=== PATIENT | male | born 1950 | race Hispanic/Latino ===

== ENCOUNTER 2021-03-10 17:07 | Observation (INO) | payer OTHER ==
[~2021-03-10] VITALS: Ht 160 cm; Wt 92.0 kg
[~2021-03-10 17:07] MED LIST: FENO160T16 PO; FOLI1TAB85 PO; GABA300S PO; GLIP10TA9 PO; IBUP-2077 PO; LOSA1TAB42 PO; MECL25TA3 PO; PARO-37 PO; PRAV40TA3 PO; REPA2TAB8 PO; SITA100T12 PO
[2021-03-10 17:53] LABS: BASOPHILS % (AUTO) 0.5 % (0.0-5.0); EOSINOPHILS % (AUTO) 0.6 % (0.0-8.0); HEMATOCRIT 41.1 % (42-54); LYMPHOCYTES % (AUTO) 11.7 % (21.0-51.0); MEAN CORPUSCULAR HEMOGLOBIN 30.8 pg (27.0-33.0); MEAN CORPUSCULAR HGB CONC 34.1 g/dL (32.0-36.0); MEAN CORPUSCULAR VOLUME 90.3 fL (79-99); MONOCYTES % (AUTO) 7.6 % (3.0-13.0); NEUTROPHILS % (AUTO) 79.1 % (40.0-77.0); PLATELET COUNT (AUTO) 206 K/uL (130-400); RED BLOOD CELL COUNT(AUTO) 4.55 MIL/uL (4.50-6.20); RED CELL DISTRIBUTION WIDTH 13.7 % (11.0-15.5); WHITE BLOOD COUNT (AUTO) 12.7 K/uL (4.8-10.8)
[2021-03-10 18:00] LABS: INR 1.04 (0.85-1.15); PROTHROMBIN TIME 11.3 SEC (9.6-11.6)
[2021-03-10] MEDS ORDERED: MORPHINE SULFATE 2 MG/ML 1ML SYG ONE ×2 (18:00→22:01)
[2021-03-10 18:01] LABS: PARTIAL THROMBOPLASTIN TIME 23.3 SEC (26.3-35.5)
[2021-03-10 18:06] LABS: CREATININE 1.9 mg/dL (0.5-1.5)
[2021-03-10 18:20] LABS: ALBUMIN 3.4 g/dL (3.5-5.0); TOTAL PROTEIN, SERUM 7.6 g/dL (6.0-8.3)
[2021-03-10 18:56] LABS: APPEARANCE,URINE Clear (CLEAR); BILIRUBIN,URINE Negative (NEGATIVE); COLOR,URINE Yellow (YELLOW); GLUCOSE, URINE (UA) >=1000 mg/dL (NEGATIVE); KETONES,URINE Negative (NEGATIVE); LEUKOCYTE ESTERASE ,URINE Negative (NEGATIVE); NITRATE,URINE Negative (NEGATIVE); OCCULT BLOOD,URINE Negative (NEGATIVE); PROTEIN,URINE Negative (NEGATIVE); UROBILINOGEN,URINE 0.2 mg/dL (0.2-1.0)
[2021-03-10 19:40] LABS: RBC,URINE 0-1 /HPF (0-1)
[2021-03-10 19:42] LABS: BACTERIA,URINE Few /HPF (None Seen); HYALINE CASTS, URINE 0-1 /LPF (0-1 /LPF); SQUAMOUS EPITHELIAL CELL,UR Rare /HPF (0-2)
[2021-03-10] MEDS ORDERED: HYDRALAZINE HCL 10 MG TABLET PO PRN (20:00)
[2021-03-10] MEDS ORDERED: DEXTROSE 50%-WATER 50 ML DISP.SYRIN IV PRN (20:00)
[2021-03-10] MEDS ORDERED: HYDROMORPHONE 1 MG/1 ML AMP IV PRN (20:00)
[2021-03-10] MEDS ORDERED: ACETAMINOPHEN 325 MG TAB PO PRN ×2 (20:00)
[2021-03-10] MEDS ORDERED: GUAIFENESIN-DM 200/20 MG 10 ML PO PRN (20:00)
[2021-03-10] MEDS ORDERED: ONDANSETRON HCL 4 MG/2 ML VIAL IV PRN (20:00)
[2021-03-10] MEDS ORDERED: BENZONATATE 100 MG CAPSULE PO PRN (20:00)
[2021-03-10] MEDS: SODIUM CHLORIDE 0.9% 1000ML 1,000 ML IV SCH (20:00)
[2021-03-10] MEDS ORDERED: NITROGLYCERIN 0.4 MG SL TAB SL PRN (20:00)
[2021-03-10] MEDS ORDERED: GLUCAGON 1MG KIT 1 MG ML IM PRN (20:00)
[2021-03-10] MEDS ORDERED: ZOLPIDEM TARTRATE 5 MG TAB PO PRN (20:00)
[2021-03-10] MEDS ORDERED: LACTULOSE 20 GM/30 ML UDCUP PO PRN (20:00)
[2021-03-10] MEDS ORDERED: MAG HYDROX/AL HYDROX/SIMETH ES 30 ML SUSP UDCUP PO PRN (20:00)
[2021-03-10] MEDS ORDERED: MORPHINE SULFATE 2 MG/ML 1ML SYG IV PRN (20:00)
[2021-03-10] MEDS: INSULIN HUMULIN R 100 UNIT/ML 3ML SQ SCH (21:00)
[2021-03-10] MEDS: GABAPENTIN 100 MG CAPSULE PO SCH (23:40)
[2021-03-10 23:55] VITALS: BP 154/90
[2021-03-11] MEDS: ACETAMINOPHEN-CODEINE 300/30MG TAB PO PRN ×3 (00:12→19:44)
[2021-03-11] MEDS ORDERED: GLIP10TA9 PO (01:11)
[2021-03-11] MEDS ORDERED: LISI1TAB51 PO (01:11)
[2021-03-11] MEDS ORDERED: INSLAN SQ (01:11)
[2021-03-11] MEDS ORDERED: DULO30CA52 PO (01:11)
[2021-03-11] MEDS ORDERED: GABA-529 PO (01:11)
[2021-03-11 03:50] VITALS: BP 118/70
[2021-03-11 06:10] LABS: BASOPHILS % (AUTO) 0.5 % (0.0-5.0); EOSINOPHILS % (AUTO) 2.5 % (0.0-8.0); HEMATOCRIT 38.2 % (42-54); LYMPHOCYTES % (AUTO) 17.3 % (21.0-51.0); MEAN CORPUSCULAR HEMOGLOBIN 31.3 pg (27.0-33.0); MEAN CORPUSCULAR HGB CONC 33.5 g/dL (32.0-36.0); MEAN CORPUSCULAR VOLUME 93.4 fL (79-99); MONOCYTES % (AUTO) 8.9 % (3.0-13.0); NEUTROPHILS % (AUTO) 70.3 % (40.0-77.0); PLATELET COUNT (AUTO) 193 K/uL (130-400); RED BLOOD CELL COUNT(AUTO) 4.09 MIL/uL (4.50-6.20); WHITE BLOOD COUNT (AUTO) 13.1 K/uL (4.8-10.8)
[2021-03-11 06:25] LABS: BILIRUBIN,DIRECT 0.2 mg/dL (0.0-0.3); BILIRUBIN,TOTAL 1.1 mg/dL (0.2-1.0); CREATININE 1.4 mg/dL (0.5-1.5); POTASSIUM 3.9 mmol/L (3.5-5.1); TOTAL PROTEIN, SERUM 6.5 g/dL (6.0-8.3)
[2021-03-11] MEDS: INSULIN HUMULIN R 100 UNIT/ML 3ML SQ SCH ×4 (07:30→20:52)
[2021-03-11 08:00] VITALS: BP 124/78
[2021-03-11] MEDS: FAMOTIDINE/PF 20 MG/2 ML VIAL IV SCH (08:16)
[2021-03-11] MEDS: GABAPENTIN 100 MG CAPSULE PO SCH ×2 (08:17→19:43)
[2021-03-11] MEDS: Vitamin B Complex/Vit C/Folic Acid PO SCH (08:17)
[2021-03-11] MEDS: LISINOPRIL 20 MG TABLET PO SCH (08:17)
[2021-03-11] MEDS: DULOXETINE HCL 30 MG CAP PO SCH (08:17)
[2021-03-11] MEDS ORDERED: HYDROCHLOROTHIAZIDE 25 MG TABLET PO SCH (09:00)
[2021-03-11] MEDS: SODIUM CHLORIDE 0.9% 1000ML 1,000 ML IV SCH ×2 (09:20→20:53)
[2021-03-11 11:53] VITALS: BP 115/78
[2021-03-11] MEDS: ACETAMINOPHEN EXTRA STRENGTH 500 MG TABLET PO SCH ×2 (15:51→19:45)
[2021-03-11 16:00] VITALS: BP 124/77
[2021-03-11 19:55] VITALS: BP 120/69
[2021-03-11] MEDS ORDERED: SIMVASTATIN 20 MG TABLET PO SCH (21:00)
[2021-03-11] MEDS ORDERED: NON-FORMULARY MEDICATION 1 EACH (Pravastatin Sodium 40 MG) PO SCH (21:00)
[2021-03-12] VITALS: BP 110/65
[2021-03-12] MEDS: ACETAMINOPHEN EXTRA STRENGTH 500 MG TABLET PO SCH ×2 (02:13→08:45)
[2021-03-12 04:00] VITALS: BP 114/67
[2021-03-12 04:20] LABS: HEMATOCRIT 36.6 % (42-54); MEAN CORPUSCULAR HEMOGLOBIN 30.7 pg (27.0-33.0); MEAN CORPUSCULAR HGB CONC 33.3 g/dL (32.0-36.0); MEAN CORPUSCULAR VOLUME 92.2 fL (79-99); RED BLOOD CELL COUNT(AUTO) 3.97 MIL/uL (4.50-6.20); RED CELL DISTRIBUTION WIDTH 13.5 % (11.0-15.5); WHITE BLOOD COUNT (AUTO) 10.8 K/uL (4.8-10.8)
[2021-03-12 04:25] LABS: HEMOGLOBIN A1C 7.6 % (4.0-6.0)
[2021-03-12 04:40] LABS: CREATININE 1.3 mg/dL (0.5-1.5); POTASSIUM 3.9 mmol/L (3.5-5.1)
[2021-03-12] MEDS: INSULIN HUMULIN R 100 UNIT/ML 3ML SQ SCH ×2 (05:19→12:15)
[2021-03-12 08:26] VITALS: BP 140/81
[2021-03-12] MEDS: DULOXETINE HCL 30 MG CAP PO SCH (08:55)
[2021-03-12] MEDS: Vitamin B Complex/Vit C/Folic Acid PO SCH (08:55)
[2021-03-12] MEDS: LISINOPRIL 20 MG TABLET PO SCH (08:55)
[2021-03-12] MEDS: ACETAMINOPHEN-CODEINE 300/30MG TAB PO PRN (08:56)
[2021-03-12] MEDS: GABAPENTIN 100 MG CAPSULE PO SCH (08:56)
[2021-03-12] MEDS: FAMOTIDINE/PF 20 MG/2 ML VIAL IV SCH (08:56)
[2021-03-12 11:48] VITALS: BP 117/73
[2021-03-12] MEDS: SODIUM CHLORIDE 0.9% 1000ML 1,000 ML IV SCH (12:11)
== END 2021-03-12 14:55 | disposition home or self-care (01) ==
LOC: EDH 17:07 → EDHIP 19:31 → 4BH 23:33
PROVIDERS: ADMIT Internal Medicine; ATTEND Internal Medicine
DX: S02.30XA Fracture of orbital floor, unspecified side, initial encounter for closed fracture (principal); T79.7XXA Traumatic subcutaneous emphysema, initial encounter; R42 Dizziness and giddiness; T14.8XXA Other injury of unspecified body region, initial encounter; E11.9 Type 2 diabetes mellitus without complications; I10 Essential (primary) hypertension; E78.5 Hyperlipidemia, unspecified; F32.9 Major depressive disorder, single episode, unspecified; E66.9 Obesity, unspecified; Z79.4 Long term (current) use of insulin; Z96.659 Presence of unspecified artificial knee joint; Z79.899 Other long term (current) drug therapy; Z68.35 Body mass index [BMI] 35.0-35.9, adult; W11.XXXA Fall on and from ladder, initial encounter; Y93.89 Activity, other specified; Y92.89 Other specified places as the place of occurrence of the external cause
CPT/HCPCS: 36415 ×3; 70450; 70486; 71045; 71250; 72125; 74176; 80048 ×2; 80053; 80076; 81001; 82550 ×3; 82948 ×7; 83036; 83605 ×2; 83690; 84484 ×2; 85025 ×2; 85027; 85610; 85730; 93005 ×2; 96361 ×2; 96372 ×2; 96374; 96375; 96376; 97039; 97161; 99285; G0378 ×42; G8978; G8979; G8980; G8981; G8982; G8983; J1815 ×3; J3490 ×2

== ENCOUNTER → 2022-03-13 | Outpatient (CLI) | payer OTHER ==
[~2022-03-13] MED LIST changes: +DULO30CA52 PO; -FENO160T16 PO; +GABA-529 PO; -GABA300S PO; +INSLAN SQ; +LISI1TAB51 PO; -LOSA1TAB42 PO; -PARO-37 PO; -SITA100T12 PO
== END | disposition home or self-care (01) ==
LOC: RAH 08:57
PROVIDERS: ATTEND Physical Medicine & Rehabilitation
DX: M47.22 Other spondylosis with radiculopathy, cervical region (principal); M48.02 Spinal stenosis, cervical region
CPT/HCPCS: 72141

== ENCOUNTER 2022-04-24 05:42 | Day surgery (SDC) | payer OTHER ==
[2022-04-23 10:07] LABS: BASOPHILS % (AUTO) 0.8 % (0.0-5.0); EOSINOPHILS % (AUTO) 4.4 % (0.0-8.0); LYMPHOCYTES % (AUTO) 21.5 % (21.0-51.0); MEAN CORPUSCULAR HEMOGLOBIN 31.6 pg (27.0-33.0); MONOCYTES % (AUTO) 5.8 % (3.0-13.0); NEUTROPHILS % (AUTO) 66.8 % (40.0-77.0); PLATELET COUNT (AUTO) 214 K/uL (130-400); RED BLOOD CELL COUNT(AUTO) 4.84 MIL/uL (4.50-6.20); RED CELL DISTRIBUTION WIDTH 13.2 % (11.0-15.5); WHITE BLOOD COUNT (AUTO) 8.4 K/uL (4.8-10.8)
[2022-04-23 10:15] VITALS: BP 158/79
[2022-04-23 10:15] LABS: CREATININE 1.3 mg/dL (0.5-1.5); POTASSIUM 4.5 mmol/L (3.5-5.1)
[2022-04-24] VITALS (12 sets, daily range): BP systolic 111–143; BP diastolic 69–83
[~2022-04-24] VITALS: Ht 165.1 cm; Wt 91.6 kg
[~2022-04-24 05:42] MED LIST changes: +CEFAZOLIN SODIUM 2 GM VIAL IV SCH; -FOLI1TAB85 PO; -IBUP-2077 PO; -MECL25TA3 PO
[2022-04-24] MEDS ORDERED: 0.9%NACL 1000ML 1,000 ML IV ONE (06:14)
[2022-04-24] MEDS ORDERED: CEFAZOLIN SODIUM 1 GM VIAL ONE (06:15)
[2022-04-24 06:48] LABS: INR 0.93 (0.85-1.15); PROTHROMBIN TIME 10.1 SEC (9.6-11.6)
[2022-04-24] MEDS ORDERED: MIDAZOLAM HCL 1 MG/ML 2ML VIAL ONE (06:57)
[2022-04-24] MEDS ORDERED: FENTANYL CITRATE PF 50 MCG/1 ML 2ML VIAL ONE (06:58)
[2022-04-24] MEDS ORDERED: LIDOCAINE HCL MDV 0.5% 50ML VIAL IJ ONE (07:02)
== END 2022-04-24 10:00 | disposition home or self-care (01) ==
LOC: DAH 05:42
PROVIDERS: ATTEND Neurological Surgery
DX: G56.03 Carpal tunnel syndrome, bilateral upper limbs (principal); I10 Essential (primary) hypertension; E11.9 Type 2 diabetes mellitus without complications; I25.2 Old myocardial infarction; Z79.899 Other long term (current) drug therapy; Z79.01 Long term (current) use of anticoagulants; Z79.4 Long term (current) use of insulin
CPT/HCPCS: 36415 ×2; 64721; 80048; 82948; 85025; 85610; 87635; 93005; A4215; A4216; A4221; A4222; A4223 ×2; A4663; A6260; C9803; J0690; J2250; J3010; J3490; J7030

== ENCOUNTER 2022-06-02 12:45 | Emergency (ER) | payer OTHER ==
[~2022-06-02] VITALS: Ht 165.1 cm; Wt 91.2 kg
[~2022-06-02 12:45] MED LIST changes: -CIPR-279 PO; -ONDA4TAB10 PO; -PANT40TA55 PO; -REGADENOSON 0.4 MG/5 ML PF SYG IVP SCH
[2022-06-02] MEDS ORDERED: PANTOPRAZOLE 40 MG/VIAL IVP STA (13:08)
[2022-06-02 13:25] LABS: BASOPHILS % (AUTO) 0.5 % (0.0-5.0); EOSINOPHILS % (AUTO) 0.3 % (0.0-8.0); HEMATOCRIT 40.6 % (42-54); LYMPHOCYTES % (AUTO) 7.3 % (21.0-51.0); MEAN CORPUSCULAR HEMOGLOBIN 31.8 pg (27.0-33.0); MEAN CORPUSCULAR HGB CONC 35.7 g/dL (32.0-36.0); MONOCYTES % (AUTO) 8.7 % (3.0-13.0); NEUTROPHILS % (AUTO) 82.6 % (40.0-77.0); PLATELET COUNT (AUTO) 146 K/uL (130-400); RED BLOOD CELL COUNT(AUTO) 4.56 MIL/uL (4.50-6.20); RED CELL DISTRIBUTION WIDTH 13.6 % (11.0-15.5)
[2022-06-02] MEDS ORDERED: PANTOPRAZOLE 40 MG TAB DR PO SCH (13:30)
[2022-06-02 13:50] LABS: CARBON DIOXIDE 27 mmol/L (21-32); CHLORIDE 96 mmol/L (101-111); CREATININE 1.8 mg/dL (0.5-1.5); GLOMERULAR FILTR. RATE CALC 39 mL/min (>60); POTASSIUM 4.3 mmol/L (3.5-5.1); SODIUM SERUM 131 mmol/L (136-145); UREA NITROGEN, BLOOD 21 mg/dL (7-18)
[2022-06-02 13:51] LABS: APPEARANCE,URINE CLEAR (CLEAR); BILIRUBIN,URINE NEGATIVE (NEGATIVE); COLOR,URINE YELLOW (YELLOW); GLUCOSE, URINE (UA) >=1000 mg/dL (NEGATIVE); KETONES,URINE 15 mg/dL (NEGATIVE); LEUKOCYTE ESTERASE ,URINE NEGATIVE (NEGATIVE); NITRATE,URINE NEGATIVE (NEGATIVE); OCCULT BLOOD,URINE NEGATIVE (NEGATIVE); PROTEIN,URINE NEGATIVE (NEGATIVE); UROBILINOGEN,URINE 0.2 mg/dL (0.2-1.0)
[2022-06-02 13:52] LABS: GLUCOSE,RANDOM 423 mg/dL (70-105)
[2022-06-02 13:53] LABS: BACTERIA,URINE Rare /HPF (None Seen); RBC,URINE 0-1 /HPF (0-1); SQUAMOUS EPITHELIAL CELL,UR Rare /HPF (0-2); WBC,URINE 0-1 /HPF (0-1)
[2022-06-02 13:53] LABS: ALANINE AMINOTRANSFERASE 42 U/L (12-78); ASPARTATE AMINOTRANSFERASE 33 U/L (10-37); TOTAL PROTEIN, SERUM 6.8 g/dL (6.0-8.3)
[2022-06-02 13:56] LABS: LIPASE < 50 U/L (114-286)
[2022-06-02] MEDS ORDERED: 0.9%NACL 1000ML 1,000 ML IV ONE (14:00)
[2022-06-02] MEDS ORDERED: CEFTRIAXONE 1G VIAL IVP STA (14:11)
[2022-06-02] MEDS ORDERED: ZOSYN 3.375GM +NS 50ML IV STA (14:28)
[2022-06-02 14:31] LABS: ABG BASE EXCESS 1.9 mmol/L (-2.0-3.0); ABG OXYGEN SATURATION 96.1 % (95.0-99.0); ABG PCO2 35 mmHg (35-48)
[2022-06-02] MEDS ORDERED: INSULIN HUMULIN R 100 UNIT/ML 3ML IV SCH (15:02)
[2022-06-02] MEDS ORDERED: ONDA4TAB10 PO (15:52)
[2022-06-02] MEDS ORDERED: PANT40TA55 PO (15:52)
[2022-06-02] MEDS ORDERED: CIPR-279 PO (15:52)
[2022-06-02 16:00] VITALS: BP 122/71
== END 2022-06-02 16:32 | disposition home or self-care (01) ==
LOC: EDH 12:45
DX: K52.9 Noninfective gastroenteritis and colitis, unspecified (principal); E11.65 Type 2 diabetes mellitus with hyperglycemia; E78.00 Pure hypercholesterolemia, unspecified; I10 Essential (primary) hypertension; Z79.84 Long term (current) use of oral hypoglycemic drugs; Z79.899 Other long term (current) drug therapy
CPT/HCPCS: 78452; 99285; 74176; 96374; 96365; 96375; 96361; 84484; 80053; 82803; 83690; 85025; 82948; 83605; 82010; 81001; 36415; 36600; 93017; 93005; J1815; J7030; J0696; J2543; J2785; A9500 ×2

== ENCOUNTER → 2022-06-02 | Outpatient (CLI) | payer OTHER ==
[~2022-06-02] VITALS: Ht 165.1 cm; Wt 90.7 kg
[~2022-06-02] MED LIST changes: -CEFAZOLIN SODIUM 2 GM VIAL IV SCH; +CIPR-279 PO; +ONDA4TAB10 PO; +PANT40TA55 PO; +REGADENOSON 0.4 MG/5 ML PF SYG IVP SCH
== END | disposition home or self-care (01) ==
LOC: SHCH 08:46
PROVIDERS: ATTEND Internal Medicine Cardiovascular Disease
DX: I44.1 Atrioventricular block, second degree (principal); R93.1 Abnormal findings on diagnostic imaging of heart and coronary circulation; R00.1 Bradycardia, unspecified; I10 Essential (primary) hypertension; E78.5 Hyperlipidemia, unspecified; E11.40 Type 2 diabetes mellitus with diabetic neuropathy, unspecified
CPT/HCPCS: 78452; 96374; 93017; J2785; A9500 ×2

== ENCOUNTER 2022-09-16 05:42 | Day surgery (SDC) | payer OTHER ==
[2022-09-15 11:36] LABS: BASOPHILS % (AUTO) 0.8 % (0.0-5.0); HEMATOCRIT 43.6 % (42-54); LYMPHOCYTES % (AUTO) 24.3 % (21.0-51.0); MEAN CORPUSCULAR HGB CONC 33.9 g/dL (32.0-36.0); MEAN CORPUSCULAR VOLUME 91.2 fL (79-99); MONOCYTES % (AUTO) 7.1 % (3.0-13.0); NEUTROPHILS % (AUTO) 59.5 % (40.0-77.0); PLATELET COUNT (AUTO) 224 K/uL (130-400); RED BLOOD CELL COUNT(AUTO) 4.78 MIL/uL (4.50-6.20); RED CELL DISTRIBUTION WIDTH 13.5 % (11.0-15.5); WHITE BLOOD COUNT (AUTO) 9.9 K/uL (4.8-10.8)
[2022-09-15 12:54] VITALS: BP 117/73
[~2022-09-16] VITALS: Ht 165.1 cm; Wt 89.4 kg
[2022-09-16] VITALS (12 sets, daily range): BP systolic 102–121; BP diastolic 55–72
[~2022-09-16 05:42] MED LIST changes: +CEFAZOLIN SODIUM 1 GM VIAL IVPB SCH; +FOLI1TAB85 PO; +GABA300C PO; -GLIP10TA9 PO; -INSLAN SQ; +INSU3INS3 SQ; +ISOS30TA92 PO; +ROSU20TA31 PO; +SEMA1PEN3 SQ
[2022-09-16] MEDS ORDERED: LIDOCAINE HCL MDV 0.5% 50ML VIAL IJ ONE (06:08)
[2022-09-16 06:48] LABS: CREATININE 1.7 mg/dL (0.5-1.5); POTASSIUM 3.4 mmol/L (3.5-5.1)
[2022-09-16] MEDS ORDERED: 0.9%NACL 1000ML 1,000 ML IV ONE (07:19)
[2022-09-16] MEDS ORDERED: MIDAZOLAM HCL 1 MG/ML 2ML VIAL ONE (08:34)
[2022-09-16] MEDS ORDERED: FENTANYL CITRATE PF 50 MCG/1 ML 2ML VIAL ONE (08:36)
== END 2022-09-16 11:15 | disposition home or self-care (01) ==
LOC: DAH 05:42
PROVIDERS: ATTEND Neurological Surgery
DX: G56.01 Carpal tunnel syndrome, right upper limb (principal); Z20.822 Contact with and (suspected) exposure to COVID-19; I10 Essential (primary) hypertension; E11.9 Type 2 diabetes mellitus without complications; E66.9 Obesity, unspecified; Z79.899 Other long term (current) drug therapy; Z79.4 Long term (current) use of insulin
CPT/HCPCS: 85025; 93005; 64721; 80048; 82948 ×2; 87426; 36415 ×2; A6260; A4663; J3010; J0690; J7030; J2250; J3490; A4215; A4223; A4222; A4221

== ENCOUNTER 2022-10-21 08:38 | Emergency (ER) | payer OTHER ==
[~2022-10-21] VITALS: Ht 165.1 cm; Wt 89.8 kg
[~2022-10-21 08:38] MED LIST changes: -CEFAZOLIN SODIUM 1 GM VIAL IVPB SCH
[2022-10-21 09:03] LABS: BASOPHILS % (AUTO) 0.8 % (0.0-5.0); EOSINOPHILS % (AUTO) 4.3 % (0.0-8.0); HEMATOCRIT 45.4 % (42-54); LYMPHOCYTES % (AUTO) 23.5 % (21.0-51.0); MEAN CORPUSCULAR HEMOGLOBIN 30.8 pg (27.0-33.0); MEAN CORPUSCULAR HGB CONC 34.1 g/dL (32.0-36.0); MEAN CORPUSCULAR VOLUME 90.3 fL (79-99); MONOCYTES % (AUTO) 7.3 % (3.0-13.0); NEUTROPHILS % (AUTO) 63.9 % (40.0-77.0); PLATELET COUNT (AUTO) 202 K/uL (130-400); RED BLOOD CELL COUNT(AUTO) 5.03 MIL/uL (4.50-6.20); RED CELL DISTRIBUTION WIDTH 13.2 % (11.0-15.5); WHITE BLOOD COUNT (AUTO) 9.2 K/uL (4.8-10.8)
[2022-10-21 09:10] LABS: APPEARANCE,URINE CLEAR (CLEAR); BILIRUBIN,URINE NEGATIVE (NEGATIVE); COLOR,URINE LIGHT-YELLOW (YELLOW); GLUCOSE, URINE (UA) >=1000 mg/dL (NEGATIVE); KETONES,URINE NEGATIVE (NEGATIVE); LEUKOCYTE ESTERASE ,URINE NEGATIVE Leu/uL (NEGATIVE); MUCUS,URINE RARE LPF (None Seen); NITRATE,URINE NEGATIVE (NEGATIVE); OCCULT BLOOD,URINE NEGATIVE (NEGATIVE); PROTEIN,URINE NEGATIVE (NEGATIVE); RBC,URINE 0-1 /HPF (0-1); SQUAMOUS EPITHELIAL CELL,UR RARE /HPF (0-2); UROBILINOGEN,URINE 0.2 mg/dL (0.2-1.0)
[2022-10-21 09:12] LABS: CREATININE 1.4 mg/dL (0.5-1.5); POTASSIUM 3.6 mmol/L (3.5-5.1)
[2022-10-21 09:16] LABS: ALBUMIN 3.5 g/dL (3.5-5.0); TOTAL PROTEIN, SERUM 7.5 g/dL (6.0-8.3)
[2022-10-21] MEDS ORDERED: KETOROLAC 30MG VIAL (30MG/ML) IM STA (11:34)
[2022-10-21 11:35] VITALS: BP 114/68
[2022-10-21] MEDS ORDERED: NAPR375T6 PO (11:48)
[2022-10-21] MEDS ORDERED: CYCL5TAB PO (11:48)
== END 2022-10-21 12:06 | disposition home or self-care (01) ==
LOC: EDH 08:38
DX: G89.29 Other chronic pain (principal); M54.50 Low back pain, unspecified; I11.9 Hypertensive heart disease without heart failure; E11.9 Type 2 diabetes mellitus without complications; E78.00 Pure hypercholesterolemia, unspecified; Z79.899 Other long term (current) drug therapy; Z98.890 Other specified postprocedural states
CPT/HCPCS: 99284; 80053; 85025; 81001; 36415; 74176; 96372; J1885

== ENCOUNTER → 2022-11-05 | Outpatient (CLI) | payer OTHER ==
[~2022-11-05] MED LIST changes: +CYCL5TAB PO; +NAPR375T6 PO
== END | disposition home or self-care (01) ==
LOC: RAH 10:26
PROVIDERS: ATTEND Physical Medicine & Rehabilitation
DX: M48.061 Spinal stenosis, lumbar region without neurogenic claudication (principal); M47.816 Spondylosis without myelopathy or radiculopathy, lumbar region; M51.36 Other intervertebral disc degeneration, lumbar region
CPT/HCPCS: 72148

== ENCOUNTER 2023-03-02 11:00 | Observation (INO) | payer OTHER ==
[~2023-03-02 11:00] MED LIST changes: -CYCL5TAB PO; -GABA-529 PO; -GABA300C PO; -INSU3INS3 SQ; -ISOS30TA92 PO; -NAPR375T6 PO; -PRAV40TA3 PO; -REPA2TAB8 PO
[2023-03-02 11:14] LABS: CREATININE 1.3 mg/dL (0.5-1.5); POTASSIUM 4.3 mmol/L (3.5-5.1)
[2023-03-02 11:17] LABS: BASOPHILS % (AUTO) 0.7 % (0.0-5.0); EOSINOPHILS % (AUTO) 3.2 % (0.0-8.0); HEMATOCRIT 47.2 % (42-54); LYMPHOCYTES % (AUTO) 22.7 % (21.0-51.0); MEAN CORPUSCULAR HEMOGLOBIN 31.1 pg (27.0-33.0); MEAN CORPUSCULAR HGB CONC 32.8 g/dL (32.0-36.0); MEAN CORPUSCULAR VOLUME 94.6 fL (79-99); MONOCYTES % (AUTO) 6.6 % (3.0-13.0); NEUTROPHILS % (AUTO) 66.3 % (40.0-77.0); PLATELET COUNT (AUTO) 190 K/uL (130-400); RED BLOOD CELL COUNT(AUTO) 4.99 MIL/uL (4.50-6.20); RED CELL DISTRIBUTION WIDTH 13.6 % (11.0-15.5); WHITE BLOOD COUNT (AUTO) 8.9 K/uL (4.8-10.8)
[2023-03-02] MEDS ORDERED: INSLAN SQ (16:28)
[2023-03-02] MEDS ORDERED: GABA-529 PO (16:28)
[2023-03-02] MEDS ORDERED: EMPA25TA PO (16:28)
[2023-03-04] VITALS (25 sets, daily range): BP systolic 104–143; BP diastolic 54–79
[2023-03-04] MEDS ORDERED: CEFAZOLIN SODIUM 1 GM VIAL IVPB SCH (06:00)
[2023-03-04] MEDS ORDERED: 0.9%NACL 1000ML 1,000 ML IV ONE (06:07)
[2023-03-04] MEDS: BUPIVACAINE/EPI/PF 0.25% 30ML VIAL IJ SCH ×2 (06:30→08:11)
[2023-03-04] MEDS ORDERED: CEFAZOLIN SODIUM 1 GM VIAL ONE ×2 (07:07→12:16)
[2023-03-04] MEDS ORDERED: MORPHINE PF 100MG/10ML AMP IV ONE (07:08)
[2023-03-04] MEDS ORDERED: FAMOTIDINE 20MG VIAL IV ONE (07:08)
[2023-03-04] MEDS ORDERED: THROMBIN-JMI 20000 UNIT KIT TP ONE (07:08)
[2023-03-04] MEDS ORDERED: ROCURONIUM 10MG/1ML SYR 10 MG/ML ML ONE (07:11)
[2023-03-04] MEDS ORDERED: LIDOCAINE PF 100MG/5ML (2%) SYRINGE 5ML ONE (07:11)
[2023-03-04] MEDS ORDERED: GLYCOPYRROLATE 1 MG/5 ML SYRINGE ONE (07:11)
[2023-03-04] MEDS ORDERED: PROPOFOL 10 MG/ML 20ML VIAL IV ONE (07:11)
[2023-03-04] MEDS ORDERED: FENTANYL CITRATE PF 50 MCG/1 ML 2ML VIAL ONE ×3 (07:12→13:26)
[2023-03-04] MEDS ORDERED: DEXAMETHASONE SOD PHOSPHATE 4 MG/ML 1ML VIAL ONE (07:15)
[2023-03-04] MEDS ORDERED: PROPOFOL 1000 MG/100 ML 100 ML IV ONE (07:15)
[2023-03-04] MEDS ORDERED: PHENYLEPHRINE HCL 10 MG/ML 1ML VIAL IV ONE (07:22)
[2023-03-04] MEDS ORDERED: MIDAZOLAM HCL 1 MG/ML 2ML VIAL ONE (07:24)
[2023-03-04] MEDS ORDERED: CEFAZOLIN SODIUM 2 GM VIAL IVPB ONE ×3 (07:30→12:00)
[2023-03-04] MEDS ORDERED: ONDANSETRON 4MG INJ ONE (12:45)
[2023-03-04] MEDS ORDERED: 0.9%NACL 10ML VIAL IVP PRN (13:00)
[2023-03-04] MEDS ORDERED: MORPHINE 2 MG SYG IVP PRN (13:00)
[2023-03-04] MEDS: CEFAZOLIN SODIUM 1 GM VIAL IVPB SCH ×2 (13:00→20:05)
[2023-03-04] MEDS ORDERED: HYDROCODONE/ACETAMINOPHEN 5/325 MG TAB PO PRN (13:00)
[2023-03-04] MEDS: LACTATED RINGERS 1000ML 1,000 ML IV SCH ×2 (13:00→19:43)
[2023-03-04] MEDS ORDERED: PROMETHAZINE HCL 25 MG/ML 1ML AMPULE IM PRN (13:00)
[2023-03-04] MEDS: GABAPENTIN 100 MG CAPSULE PO SCH ×2 (14:00→20:07)
[2023-03-04] MEDS: DEXAMETHASONE SOD PHOSPHATE 4 MG/ML 1ML VIAL IVP SCH (19:43)
[2023-03-04] MEDS ORDERED: INSULIN GLARGINE 100 UNITS/ML 10 ML VIAL SQ SCH (21:00)
[2023-03-04] MEDS ORDERED: ATORVASTATIN 40 MG TABLET PO SCH (21:00)
[2023-03-05] MEDS: DEXAMETHASONE SOD PHOSPHATE 4 MG/ML 1ML VIAL IVP SCH ×2 (00:29→05:49)
[2023-03-05 01:06] VITALS: BP 102/64
[2023-03-05 03:47] VITALS: BP 107/67
[2023-03-05 08:00] VITALS: BP 113/66
[2023-03-05] MEDS: GABAPENTIN 100 MG CAPSULE PO SCH (08:44)
[2023-03-05] MEDS ORDERED: LISINOPRIL 20 MG TABLET PO SCH (09:00)
[2023-03-05] MEDS ORDERED: DULOXETINE HCL 30 MG CAP PO SCH (09:00)
[2023-03-05] MEDS ORDERED: HYDROCHLOROTHIAZIDE 25 MG TABLET PO SCH (09:00)
[2023-03-05] MEDS ORDERED: Vitamin B Complex/Vit C/Folic Acid PO SCH (09:00)
[2023-03-05] MEDS ORDERED: EMPAGLIFLOZIN 25MG TABLET PO SCH (09:00)
[2023-03-11] MEDS ORDERED: SEMAGLUTIDE 0.5 MG SQ SCH (09:00)
== END 2023-03-05 10:45 | disposition home or self-care (01) ==
LOC: DAHIP 03-04 05:44 → EDSTATUS 03-04 11:00 → 4DH 03-04 13:58
PROVIDERS: ADMIT Neurological Surgery; ATTEND Neurological Surgery
DX: M48.061 Spinal stenosis, lumbar region without neurogenic claudication (principal); Z20.822 Contact with and (suspected) exposure to COVID-19; I10 Essential (primary) hypertension; E11.9 Type 2 diabetes mellitus without complications; J44.9 Chronic obstructive pulmonary disease, unspecified; E78.5 Hyperlipidemia, unspecified; K76.9 Liver disease, unspecified; M67.48 Ganglion, other site; Z79.899 Other long term (current) drug therapy
CPT/HCPCS: 80048; 85025; 87426; 36415; 71045; 63047; 63048 ×4; 96374; 82948 ×5; 72020; 96376; A6260; J1100 ×4; J1815; G0378 ×22; A4510; A4663; J7030 ×2; J7120; A4344; J3490 ×3; J3010 ×3; J0690 ×5; J2001; J2250; J2704 ×2; J2274; J2405; J2370; A4649; A4215; A4223; A4222; A4221; A4600

== ENCOUNTER → 2023-08-11 | Outpatient (CLI) | payer OTHER ==
[~2023-08-11] MED LIST changes: +EMPA25TA PO; +GABA-529 PO; +INSLAN SQ; -ROSU20TA31 PO; +ROSU20TA73 PO
== END | disposition home or self-care (01) ==
LOC: RAH 14:58
PROVIDERS: ATTEND Physical Medicine & Rehabilitation
DX: M47.27 Other spondylosis with radiculopathy, lumbosacral region (principal); M48.07 Spinal stenosis, lumbosacral region; M41.86 Other forms of scoliosis, lumbar region; M43.16 Spondylolisthesis, lumbar region; Z98.890 Other specified postprocedural states
CPT/HCPCS: 72148

== ENCOUNTER → 2023-08-20 | Outpatient (CLI) | payer OTHER | END | disposition home or self-care (01) | LOC: RAH 10:29 | PROVIDERS: ATTEND Anesthesiology Pain Medicine | DX: M25.551 Pain in right hip (principal); Z96.641 Presence of right artificial hip joint | CPT/HCPCS: 73502; 73552 ==

== ENCOUNTER → 2025-01-31 | Outpatient (CLI) | payer OTHER ==
[~2025-01-31] MED LIST changes: -ROSU20TA73 PO; +ROSU20TA98 PO
[2025-01-31 12:55] LABS: CHOLESTEROL 120 mg/dL (<200); HDL CHOLESTEROL 72 mg/dL (29-71); LDL DIRECT 41 mg/dL (0-99); TRIGLYCERIDES 63 mg/dL (30-200)
== END | disposition home or self-care (01) ==
LOC: LAB 10:40
PROVIDERS: ATTEND Internal Medicine Cardiovascular Disease
DX: E78.5 Hyperlipidemia, unspecified (principal)
CPT/HCPCS: 36415; 80061

== ENCOUNTER → 2025-06-13 | Outpatient (CLI) | payer OTHER ==
--- NOTE | 2025-06-13 12:45 | HMCIMG ---
EXAM: XR Lumbar Spine, 1 View total. CLINICAL HISTORY: 75 year old male with lower back pain. COMPARISON: MR Lumbar Spine 08/11/23. Comparison similar compared to MRI of the lumbar spine 08/11/23. FINDINGS: BONES: No acute fracture or aggressive appearing osseous lesion. Moderate anterolisthesis of L4 on L5 on flexion views. Minimal scoliosis of the lumbar spine with convexity to the left. Posterior vertebral body alignment is within normal limits in the lumbar spine. DISCS/DEGENERATIVE CHANGES: [id number] degenerative changes of the lumbar spine. The disc spaces are preserved. SOFT TISSUES: No prevertebral soft tissue swelling evident in the lumbar spine. The visualized lungs appear clear. Aorta shows [id number] degenerative changes. IMPRESSION: 1. Moderate anterolisthesis of L4 on L5 on flexion views, similar to prior MRI of the lumbar spine 08/11/23. 2. Minimal scoliosis of the lumbar spine with convexity to the left. /[place]
== END | disposition home or self-care (01) ==
LOC: RAH 11:43
PROVIDERS: ATTEND Physical Medicine & Rehabilitation
DX: M47.26 Other spondylosis with radiculopathy, lumbar region (principal); M43.16 Spondylolisthesis, lumbar region; I70.0 Atherosclerosis of aorta
CPT/HCPCS: 72114